=== PATIENT | male | born 1945 | race Caucasian/White ===

== ENCOUNTER 2016-09-09 19:32 | Inpatient (IN) | payer MEDICARE, OTHER ==
[~2016-09-09] VITALS: Ht 175.3 cm; Wt 73.8 kg
[~2016-09-09 19:32] MED LIST: ACTOS 45MG45 MG/TAB PO; ALBUTEROL0.83 MG/ML; ASPIRIN 32325 MG/TAB PO; ASPIRIN 81M81 MG/TA2; ATROVENT I0.2 MG/1 M; CHANTIX 0.5MG0.5 MG PO; DIOVAN320 MG PO; DOXYCYCLINE 10100 MG PO; FOSAMAX 70MG TA70 MG; GLUCOPHAGE1000 MG PO; GLUCOTROL XL10 MG PO; LEVAQUIN 750MG750 M1 PO; MELOXICAM15 MG PO; PRILOSEC10 MG; PRILOSEC10 MG PO; SIMVASTATIN40 MG PO; VITAMIN D 1001000 IU; VYTORIN 10 MG-11 TAB PO; VYTORIN 10 MG-41 TAB PO; ZYRTEC 10MG10 MG; [UNRECOGNIZED DRUG - CODE] PO
[2016-09-09] MEDS ORDERED: NORCO 325 MG-51 TAB PO (20:18)
[2016-09-09] MEDS ORDERED: AMBIEN 5MG TABLE5 MG PO (20:19)
[2016-09-09] MEDS ORDERED: IRON325 MG PO (20:19)
[2016-09-09] MEDS ORDERED: XANAX .25M0.25 MG/TA PO (20:20)
[2016-09-09] MEDS ORDERED: MAGIC MOUTH PO (20:20)
[2016-09-09 20:28] LABS: MEAN CELL VOLUME 80 fl (80.0-100.0); MEAN CORPUSCULAR HGB CONC 32 g/dl (33.0-37.0); RED BLOOD COUNT 2.19 M/mm3 (4.20-5.60); REDCELL DISTRIBUTION WIDTH-CV 23.3 % (11.5-14.5)
[2016-09-09 20:50] LABS: HEMATOCRIT 17.4 % (42.0-52.0); HEMOGLOBIN 5.6 g/dl (13.5-18.0); MEAN CORPUSCULAR HEMOGLOBIN 26 pg (27.0-31.0); WHITE BLOOD COUNT 0.3 K/mm3 (4.8-10.8)
[2016-09-09 20:51] LABS: ADD PATHOLOGY DIFF REVIEW NO; PLATELET COUNT 11 K/mm3 (130-400)
[2016-09-09 20:55] LABS: ADJUSTED CALCIUM 9.5 mg/dL (8.4-10.2); ALBUMIN 3.1 gm/dL (3.5-5.0); BILIRUBIN,TOTAL 0.9 mg/dL (0.0-1.0); CALCIUM 8.8 mg/dL (8.4-10.2); CREATININE, serum 0.97 mg/dL (0.66-1.25); POTASSIUM 4.4 mmol/L (3.4-5.0)
[2016-09-09 22:08] VITALS: BP 109/54; PULSE 115; TEMP 100.6
[2016-09-09 23:36] VITALS: BP 83/50; PULSE 134; TEMP 101.2
[2016-09-09] MEDS ORDERED: CORTIZONE-10 PLUS1% TP (23:42)
[2016-09-09 23:55] VITALS: BP 82/49; PULSE 133; TEMP 101.5
[2016-09-10] VITALS (107 sets, daily range): BP systolic 80–121; BP diastolic 46–65; PULSE 100–127; TEMP 98.8–103.3; O2SAT 85–100
[2016-09-10 00:44] LABS: BAND 6 % (0-10); BASOPHIL 2 % (0-2); EOSINOPHIL 2 % (0-4); MYELOCYTE 2 % (0-0); NEUTROPHILS 42 % (42.0-75.2)
[2016-09-10 00:46] LABS: ANISOCYTOSIS 4+; PLATELET ESTIMATE DECREASED (NORMAL)
[2016-09-10 00:47] LABS: HYPOCHROMIA 1+; MICROCYTOSIS 1+; OVALOCYTES 1+; TEAR DROP CELLS 1+
[2016-09-10 00:49] LABS: TOTAL CELLS COUNTED 100
[2016-09-10 03:23] LABS: PH 5 (5-8); SQUAMOUS EPITHELIAL None Seen /hpf; URINE APPEARANCE Clear; URINE BACTERIA None Seen /hpf; URINE BILIRUBIN Negative (NEGATIVE); URINE BLOOD Negative (NEGATIVE); URINE COLOR Yellow; URINE GLUCOSE Negative (NEGATIVE); URINE KETONE Trace (NEGATIVE); URINE RBC 0-2 /hpf; URINE UROBILINOGEN Negative (NEGATIVE); URINE WBC 0-2 /hpf
[2016-09-10 07:24] LABS: MEAN CELL VOLUME 82 fl (80.0-100.0); MEAN CORPUSCULAR HGB CONC 33 g/dl (33.0-37.0); MEAN PLATELET VOLUME 10.4 fl (7.4-10.4); RED BLOOD COUNT 2.49 M/mm3 (4.20-5.60); REDCELL DISTRIBUTION WIDTH-CV 20.6 % (11.5-14.5)
[2016-09-10 07:39] LABS: HEMATOCRIT 20.5 % (42.0-52.0); HEMOGLOBIN 6.8 g/dl (13.5-18.0); MEAN CORPUSCULAR HEMOGLOBIN 27 pg (27.0-31.0); PLATELET COUNT 10 K/mm3 (130-400)
[2016-09-10 07:40] LABS: ADD PATHOLOGY DIFF REVIEW NO; WHITE BLOOD COUNT 0.2 K/mm3 (4.8-10.8)
[2016-09-10 12:08] LABS: BAND 30 % (0-10); BASOPHIL 10 % (0-2); NEUTROPHILS 20 % (42.0-75.2); TOTAL CELLS COUNTED 100
[2016-09-10 12:09] LABS: MICROCYTOSIS 1+; PLATELET ESTIMATE DECREASED (NORMAL)
[2016-09-10 13:34] LABS: ARTERIAL BLD GAS O2 SATURATION 89.6 % (92-100); ARTERIAL BLD GAS TCO2 CT 19.6; ARTERIAL BLOOD GAS BASE EXCESS -4.4 (-2-2); ARTERIAL BLOOD GAS HCO3 18.7 meq/L (22-26); ARTERIAL BLOOD GAS PO2 60.7 mmHg (80-100); ARTERIAL BLOOD GAS pH 7.46 (7.35-7.45)
[2016-09-10 13:35] LABS: ALLEN TEST YES; ALLENS TEST RESULT PASS; ARTERIAL BLOOD GAS PHT 7.42 C (7.35-7.45); ARTERIAL BLOOD GAS PO2T 72.6 (80-100); ATS? YES
== END 2016-09-10 15:40 | disposition home or self-care (01) | DRG 871 ==
LOC: COL.ER 19:32 → MEDICAL 20:27 → ICU 09-10 13:05
PROVIDERS: Emergency Medicine; Internal Medicine
DX: A41.9 Sepsis, unspecified organism (principal); D61.810 Antineoplastic chemotherapy induced pancytopenia; C34.02 Malignant neoplasm of left main bronchus; J91.0 Malignant pleural effusion; R65.20 Severe sepsis without septic shock; I10 Essential (primary) hypertension; E11.9 Type 2 diabetes mellitus without complications; F17.210 Nicotine dependence, cigarettes, uncomplicated
CPT/HCPCS: 99223-AI; 99233-AI; J0692; J1447; J3370; J7030; J7050; P9037; P9040

== ENCOUNTER → 2016-09-23 | Outpatient (REF) ==
[~2016-09-23] MED LIST changes: +AMBIEN 5MG TABLE5 MG PO; +CORTIZONE-10 PLUS1% TP; +IRON325 MG PO; +MAGIC MOUTH PO; +NORCO 325 MG-51 TAB PO; +XANAX .25M0.25 MG/TA PO
== END ==
LOC: ZLAB.WCH 12:48
DX: Z01.89 Encounter for other specified special examinations (principal)

== ENCOUNTER 2016-10-25 08:51 | Outpatient (RCR) | payer MEDICARE, OTHER ==
[~2016-10-25] VITALS: Ht 175.3 cm; Wt 79.0 kg
[2016-10-25] VITALS (10 sets, daily range): BP systolic 103–131; BP diastolic 52–63; PULSE 87–102; TEMP 97.1–98.4
[2016-10-25 09:43] LABS: HEMATOCRIT 22.3 % (42.0-52.0)
[2016-10-25 09:44] LABS: HEMOGLOBIN 6.9 g/dl (13.5-18.0)
== END 2016-10-25 16:58 | disposition home or self-care (01) ==
LOC: EUO 08:51
PROVIDERS: Internal Medicine
DX: C34.01 Malignant neoplasm of right main bronchus (principal); D64.81 Anemia due to antineoplastic chemotherapy
CPT/HCPCS: J1644; J7050; P9016

== ENCOUNTER 2016-10-29 13:50 | Outpatient (RCR) | payer MEDICARE, OTHER ==
[2016-10-29] VITALS (8 sets, daily range): BP systolic 94–114; BP diastolic 50–62; PULSE 85–98; TEMP 98.2
[~2016-10-29] VITALS: Ht 175.3 cm; Wt 76.7 kg
== END 2016-10-29 17:22 | disposition home or self-care (01) ==
LOC: EUO 13:50 → MEDICAL 14:21 → EUO 17:22
DX: C34.01 Malignant neoplasm of right main bronchus (principal)
CPT/HCPCS: OP; J7050; P9037

== ENCOUNTER 2016-11-07 11:59 | Outpatient (RCR) | payer MEDICARE, OTHER ==
[2016-11-07] VITALS (10 sets, daily range): BP systolic 109–131; BP diastolic 51–74; PULSE 82–99; TEMP 97.4–98.7
[~2016-11-07] VITALS: Ht 175.3 cm; Wt 79.5 kg
[2016-11-07 13:06] LABS: ADJUSTED CALCIUM 10.1 mg/dL (8.4-10.2); ALBUMIN 3.5 gm/dL (3.5-5.0); BILIRUBIN,TOTAL 0.8 mg/dL (0.0-1.0); CALCIUM 9.7 mg/dL (8.4-10.2); CREATININE, serum 1.06 mg/dL (0.66-1.25); POTASSIUM 4.8 mmol/L (3.4-5.0); TOTAL PROTEIN 6.7 gm/dL (6.4-8.2)
== END 2016-11-07 19:38 | disposition home or self-care (01) ==
LOC: EUO 11:59 → COL.LAB 11:59 → EDSTATUS 12:50 → EUO 19:38
PROVIDERS: Internal Medicine
DX: C34.01 Malignant neoplasm of right main bronchus (principal); E11.9 Type 2 diabetes mellitus without complications; I10 Essential (primary) hypertension
CPT/HCPCS: J7050; P9040

== ENCOUNTER → 2016-11-11 | Outpatient (CLI) | payer MEDICARE, OTHER ==
[2016-11-11 14:25] LABS: ADD PATHOLOGY DIFF REVIEW NO
[2016-11-11 14:30] LABS: MEAN CELL VOLUME 92 fl (80.0-100.0); MEAN CORPUSCULAR HGB CONC 31 g/dl (33.0-37.0); MEAN PLATELET VOLUME 9.9 fl (7.4-10.4); PLATELET COUNT 79 K/mm3 (130-400); RED BLOOD COUNT 3.15 M/mm3 (4.20-5.60); REDCELL DISTRIBUTION WIDTH-CV 16.5 % (11.5-14.5); WHITE BLOOD COUNT 7.7 K/mm3 (4.8-10.8)
[2016-11-11 14:40] LABS: MEAN CORPUSCULAR HEMOGLOBIN 29 pg (27.0-31.0)
[2016-11-11 16:10] LABS: ANISOCYTOSIS 1+; BAND 11 % (0-10); BASOPHIL 1 % (0-2); EOSINOPHIL 1 % (0-4); HYPOCHROMIA 1+; MYELOCYTE 1 % (0-0); NEUTROPHILS 72 % (42.0-75.2); PLATELET ESTIMATE DECREASED (NORMAL); TOTAL CELLS COUNTED 100
[2016-11-11 16:11] LABS: STOMATOCYTE 1+
== END ==
LOC: EUO 14:12 → COL.LAB 14:12
PROVIDERS: Internal Medicine
DX: C34.01 Malignant neoplasm of right main bronchus (principal); C34.11 Malignant neoplasm of upper lobe, right bronchus or lung